=== PATIENT | male | born 1980 | race American Indian/Alaskan Native ===

== ENCOUNTER 2019-09-19 06:23 | Observation (INO) | payer OTHER ==
[2019-09-19] MEDS ORDERED: ASPIRIN 325 MG TAB PO ONE (06:57)
[2019-09-19 07:36] LABS: Basophils # (Auto) 0.1 K/mm3 (0.0-0.1); Basophils % (Auto) 0.8 % (0.0-1.8); Eosinophils # (Auto) 0.1 K/mm3 (0.0-0.4); Eosinophils % (Auto) 1.4 % (0.0-4.3); Hematocrit 40.1 % (35.5-45.6); Hemoglobin 13.3 gm/dl (11.8-15.2); Lymphocytes # (Auto) 1.8 K/mm3 (1.2-5.4); Lymphocytes % (Auto) 22.5 % (13.4-35.0); Mean Corpuscular HGB Conc 33 % (32-34); Mean Corpuscular Volume 85 fl (84-94); Monocytes # (Auto) 0.8 K/mm3 (0.0-0.8); Monocytes % (Auto) 9.6 % (0.0-7.3); Platelet Count 272 K/mm3 (140-440); Red Blood Count 4.73 M/mm3 (3.65-5.03); Red Cell Distribution Width 15.3 % (13.2-15.2)
[2019-09-19 07:52] LABS: BUN/Creatinine Ratio 17; Blood Urea Nitrogen 19 mg/dL (9-20); Calcium 9.4 mg/dL (8.4-10.2); Hemolysis Index 10
--- NOTE | 2019-09-19 08:30 | XRay Report ---
CHEST 2 VIEWS INDICATION / CLINICAL INFORMATION: Chest Pain. COMPARISON: None available. FINDINGS: SUPPORT DEVICES: None. HEART / MEDIASTINUM: No significant abnormality. LUNGS / PLEURA: No significant pulmonary or pleural abnormality. No pneumothorax. ADDITIONAL FINDINGS: No significant additional findings. IMPRESSION: 1. No acute findings. Signer Name: Christina Crouch MD Signed: 09/19/2019 8:26 AM Workstation Name: [id number]
--- NOTE | 2019-09-19 10:03 | Emergency Department Report ---
ED Chest Pain HPI - General Chief Complaint: Chest Pain Stated Complaint: CHEST PAIN Time Seen by Provider: 09/19/19 09:45 Source: patient, RN notes reviewed Mode of arrival: Ambulatory Limitations: No Limitations - History of Present Illness Initial Comments: Primary care Dr.: Dr. Portillo Past medical history: Obesity, hypertension, high cholesterol Patient states that earlier on this year, around May,, he saw one of our local cardiologists, likely Dr. Teodoro Corcoran He was evaluated for chest pain at that time. He reports having an ech ocardiogram which he indicates was normal, and he also indicates that he had a negative nuclear stress test. At that time, he was being evaluated for nonspecific left-sided chest pain. Today, the patient presents with a complaint of resolve left-sided chest pressure and discomfort. He woke up at 5:00 this morning, and noticed left-sided chest discomfort. The discomfort is described as aching, and did not radiate to the back, arms or neck. There is no vomiting or diaphoresis. There is no exertional shortness of breath. There is no recent aspirin consumption. He described lightheadedness, now resolved. He is right- hand dominant, and does a lot of heavy lifting for work. He has had some recent trips, but denies surgery, posterior leg pain or leg swelling, hematemesis and bright red blood per rectum. Symptoms are now resolved. MD Complaint: chest pain -: Gradual Onset: during rest Pain Location: left chest Pain Radiation: none Severity: mild Quality: aching Consistency: intermittent Improves With: nothing Worsens With: nothing Context: other Aspirin use within the Past 7 Days: (0) No - Related Data On Oral Contraceptives: No Allergies Allergy/AdvReac Type Severity Reaction Status Date / Time morphine Allergy Hives Verified 09/19/19 06:57 Penicillins Allergy Hives Verified 09/19/19 06:56 Sulfa (Sulfonamide Allergy Hives Verified 09/19/19 06:57 Antibiotics) Heart Score - HEART Score History: Slightly suspicious EKG: Non-specific Age: < 45 Risk factors: > 3 risk factors or hx of atherosclerotic disease Troponin: < normal limit HEART Score: 3 - Critical Actions Critical Actions: 4-6 pts:12-16.6% risk of adverse cardiac event. Should be admitted ED Review of Systems ROS: Stated complaint: CHEST PAIN Other details as noted in HPI Constitutional: denies: fever Eyes: denies: eye discharge ENT: denies: congestion Respiratory: denies: wheezing Cardiovascular: other Gastrointestinal: denies: vomiting Genitourinary: denies: dysuria Musculoskeletal: denies: back pain Neurological: weakness Psychiatric: anxiety Hematological/Lymphatic: denies: easy bleeding ED Past Medical Hx - Past Medical History Previous Medical History?: Yes Hx Hypertension: Yes Additional medical history: High Cholesterol - Surgical History Past Surgical History?: Yes Additional Surgical History: Back, Right foot - Social History Smoking Status: Never Smoker Substance Use Type: None ED Physical Exam - General Limitations: No Limitations General appearance: alert, anxious, obese - Head Head exam: Present: atraumatic, normocephalic - Eye Eye exam: Present: normal appearance, EOMI. Absent: nystagmus - ENT ENT exam: Present: normal exam, normal orophraynx, mucous membranes moist, normal external ear exam - Neck Neck exam: Present: normal inspection, full ROM. Absent: tenderness, meningismus - Respiratory Respiratory exam: Present: normal lung sounds bilaterally. Absent: respiratory distress - Cardiovascular Cardiovascular Exam: Present: regular rate, normal rhythm, normal heart sounds. Absent: bradycardia, tachycardia, irregular rhythm, systolic murmur, diastolic murmur, rubs, gallop - GI/Abdominal GI/Abdominal exam: Present: soft. Absent: distended, tenderness, guarding, rebound, rigid, pulsatile mass - Rectal Rectal exam: Present: deferred - Extremities Exam Extremities exam: Present: normal inspection, full ROM, other (2+ pulses noted in the bilateral upper and lower extremities. Muscular compartments are soft. The pelvis is stable. There is no long bony tenderness.). Absent: pedal edema, calf tenderness - Back Exam Back exam: Present: normal inspection - Neurological Exam Neurological exam: Present: alert, oriented X3, normal gait, other (there is no facial droop. The tongue is midline. Extraocular movements are intact bilaterally. There is 5/5 strength bilateral upper and lower extremities. Sensation is intact to light touch bilateral upper and lower extremities.). Absent: motor sensory deficit - Psychiatric Psychiatric exam: Present: anxious - Skin Skin exam: Present: warm, dry, intact, normal color. Absent: rash ED Course Vital Signs 09/19/19 09/19/19 09/19/19 06:41 10:59 12:07 Temperature 98.5 F Pulse Rate 98 H 74 89 Respiratory 18 16 20 Rate Blood Pressure 179/110 Blood Pressure 146/97 159/103 [Left] O2 Sat by Pulse 97 97 96 Oximetry 09/19/19 13:39 Temperature Pulse Rate 74 Respiratory 18 Rate Blood Pressure Blood Pressure 144/94 [Left] O2 Sat by Pulse 99 Oximetry - Reevaluation(s) Reevaluation #1: 09/19/19 11:31 Differential diagnosis, including but not limited to: Acute coronary syndrome, GERD, gastritis, hiatal hernia, pneumonia, pulmonary embolism Assessment and plan: 39-year-old gentleman with left-sided chest pain. He is not tachycardic, tachypnea or hypoxia, he is perc negative and d dimer negative EKG is unchanged 2, but abnormal. Troponin is negative 2. Contacted covering cardiology, Dr. Thomas. Apparently, the patient had a stress test a few months ago which was inconclusive and nondiagnostic. He indicates of the left axis deviation appears to be new. he is amenable to following in inpatient consultation if patient agrees to admission Given all the aforementioned, patient at moderate risk for major adverse cardiac event, especially given chest pain, EKG changes, and nondiagnostic risk stratification. We have recommended admission to the hospital for further evaluation and management. The consult and dermatological surgeon agrees to follow in consultation. Extensive discussion had with the patient. We talked about recommendations for admission, risks, benefits and alternatives. The patient is currently deciding whether or not he wants to be admitted. 09/19/19 12:04 Reevaluation #2: 09/19/19 12:04 d/w Dr Marivel Jain, patient accepted to the medical service for expedited cardiac risk stratification REGGIE score - Reggie Score Age > 65: (0) No Aspirin use within the Past 7 Days: (0) No 3 or more CAD Risk Factors: (1) Yes 2 or more Angina events in past 24 hrs: (0) No Known CAD with more than 50% Stenosis: (0) No Elevated Cardiac Markers: (0) No ST Deviation Greater than 0.5mm: (0) No REGGIE Score: 1 ED Medical Decision Making - Lab Data Result diagrams: 09/19/19 07:08 09/19/19 07:08 Vital Signs 09/19/19 09/19/19 06:41 10:59 Temperature 98.5 F Pulse Rate 98 H 74 Respiratory 18 16 Rate Blood Pressure 179/110 Blood Pressure 146/97 [Left] O2 Sat by Pulse 97 97 Oximetry Lab Results 09/19/19 09/19/19 09/19/19 Range/Units 07:08 07:08 09:53 WBC 8.2 (4.5-11.0) K/mm3 RBC 4.73 (3.65-5.03) M/mm3 Hgb 13.3 (11.8-15.2) gm/dl Hct 40.1 (35.5-45.6) % MCV 85 (84-94) fl MCH 28 (28-32) pg MCHC 33 (32-34) % RDW 15.3 H (13.2-15.2) % Plt Count 272 (140-440) K/mm3 Lymph % (Auto) 22.5 (13.4-35.0) % [place] % (Auto) 9.6 H (0.0-7.3) % Eos % (Auto) 1.4 (0.0-4.3) % Baso % (Auto) 0.8 (0.0-1.8) % Lymph # 1.8 (1.2-5.4) K/mm3 [place] # 0.8 (0.0-0.8) K/mm3 Eos # 0.1 (0.0-0.4) K/mm3 Baso # 0.1 (0.0-0.1) K/mm3 Seg Neutrophils % 65.7 (40.0-70.0) % Seg Neutrophils # 5.4 (1.8-7.7) K/mm3 PT (12.2-14.9) Sec. INR (0.87-1.13) D-Dimer (0-234) ng/mlDDU Sodium 142 (137-145) mmol/L Potassium 3.4 L (3.6-5.0) mmol/L Chloride 104.2 (98-107) mmol/L Carbon Dioxide 21 L (22-30) mmol/L Anion Gap 20 mmol/L BUN 19 (9-20) mg/dL Creatinine 1.1 (0.8-1.5) mg/dL Estimated GFR > 60 ml/min BUN/Creatinine Ratio 17 % Glucose 139 H (75-100) mg/dL Calcium 9.4 (8.4-10.2) mg/dL Troponin T < 0.010 < 0.010 (0.00-0.029) ng/mL 09/19/19 09/19/19 Range/Units 10:08 10:08 WBC (4.5-11.0) K/mm3 RBC (3.65-5.03) M/mm3 Hgb (11.8-15.2) gm/dl Hct (35.5-45.6) % MCV (84-94) fl MCH (28-32) pg MCHC (32-34) % RDW (13.2-15.2) % Plt Count (140-440) K/mm3 Lymph % (Auto) (13.4-35.0) % [place] % (Auto) (0.0-7.3) % Eos % (Auto) (0.0-4.3) % Baso % (Auto) (0.0-1.8) % Lymph # (1.2-5.4) K/mm3 [place] # (0.0-0.8) K/mm3 Eos # (0.0-0.4) K/mm3 Baso # (0.0-0.1) K/mm3 Seg Neutrophils % (40.0-70.0) % Seg Neutrophils # (1.8-7.7) K/mm3 PT 12.1 L (12.2-14.9) Sec. INR 0.90 (0.87-1.13) D-Dimer 149.6 (0-234) ng/mlDDU Sodium (137-145) mmol/L Potassium (3.6-5.0) mmol/L Chloride (98-107) mmol/L Carbon Dioxide (22-30) mmol/L Anion Gap mmol/L BUN (9-20) mg/dL Creatinine (0.8-1.5) mg/dL Estimated GFR ml/min BUN/Creatinine Ratio % Glucose (75-100) mg/dL Calcium (8.4-10.2) mg/dL Troponin T (0.00-0.029) ng/mL - EKG Data -: EKG Interpreted by Ut EKG shows normal: sinus rhythm Rate: normal - EKG Data When compared to previous EKG there are: previous EKG unavailable 09/19/19 11:30 EKG #1 shows a sinus rhythm, 93 bpm, left axis deviation, left anterior fascicular block, QTC is prolonged EKG #2 was unchanged from prior. EKGs are unremarkable. As per discussion with consulting cardiology, Dr. Thomas, left axis deviation is new, left anterior fascicular block is new, patient's previous EKG showed a normal sinus rhythm with premature ventricular contractions. - Radiology Data Radiology results: report reviewed, image reviewed X-ray of the chest is interpreted as negative for acute disease Critical care attestation.: If time is entered above; I have spent that time in minutes in the direct care of this critically ill patient, excluding procedure time. ED Disposition Clinical Impression: Acute chest pain, Acute electrocardiogram changes Disposition: 09 OP ADMIT IP TO THIS HOSP Is pt being admited?: Yes Does the pt Need Aspirin: Yes Condition: Stable
[2019-09-19] MEDS ORDERED: ACETAMINOPHEN 325 MG TAB PO ONE (10:24)
[2019-09-19] MEDS ORDERED: FAMOTIDINE 20 MG TAB PO ONE (10:24)
[2019-09-19 10:34] LABS: INR 0.9 (0.87-1.13)
[2019-09-19] MEDS ORDERED: POTASSIUM CHLORIDE ER 20 MEQ TAB PO ONE (10:39)
[2019-09-19] MEDS ORDERED: ASPIRIN 325 MG TAB ONE (11:09)
[2019-09-19] MEDS ORDERED: ASPIRIN 81 MG TAB CHEW PO ONE (11:33)
[2019-09-19] MEDS ORDERED: ALBUTEROL 2.5 MG/3 ML NEBU IH PRN (12:03)
[2019-09-19] MEDS ORDERED: ACETAMINOPHEN 325 MG TAB PO PRN (12:03)
[2019-09-19] MEDS ORDERED: ONDANSETRON 4 MG/2 ML INJ IV PRN (12:03)
[2019-09-19] MEDS ORDERED: MORPHINE 2 MG/1 ML INJ IV PRN (12:03)
--- NOTE | 2019-09-19 12:06 | History and Physical Report ---
History of Present Illness Chief complaint: My chest was hurting History of present illness: 39 YO Male with Obesity Hypoventilation Syndrome, HTN, HLD presents to ED for evaluation. Pt states that he has experienced pain in his chest over the past 1 day. Pt reports that he was awakened from sleep around 0500 hrs with pain in his left chest. Pain is 5/10, intermittent, nonradiating, not worsened with exertion, not relieved with rest. Pain lasted for over an hour and has since resolved. Pt transported to [facility] via private vehicle. Pt seen and evaluated in ED and found to have Angina. Pt placed in observation status and admitted to telemetry. Cardiology team consulted in ED. Pt denies fever, chills, Palpitations, NVD, Trauma, unilateral leg swelling, calf pain, prolonged travel, individual/family history of DVT/Bleeding/PE/Blood clotting Disorders. No prior admission for review. All medication listed at time of admission was reconciled. Past History Past Medical History: other (see HPI) Past Surgical History: Other (Back, Right Foot surgery) Social history: single. denies: smoking, alcohol abuse, prescription drug abuse Family history: no significant family history, other (reviewed) Medications and Allergies Allergies Allergy/AdvReac Type Severity Reaction Status Date / Time morphine Allergy Hives Verified 09/19/19 06:57 Penicillins Allergy Hives Verified 09/19/19 06:56 Sulfa (Sulfonamide Allergy Hives Verified 09/19/19 06:57 Antibiotics) Home Medications Medication Instructions Recorded Confirmed Last Taken Type Allopurinol [Zyloprim] 300 mg PO QDAY 09/19/19 09/19/19 1 Day Ago History ~09/18/19 AtorvaSTATin [Lipitor] 20 mg PO QHS 09/19/19 09/19/19 1 Day Ago History ~09/18/19 Indomethacin 50 mg PO QDAY PRN 09/19/19 09/19/19 1 Day Ago History ~09/18/19 Metoprolol Xl [Metoprolol 200 mg PO QDAY 09/19/19 09/19/19 1 Day Ago History SUCCINATE ER TAB] ~09/18/19 amLODIPine 10 mg PO QDAY 09/19/19 09/19/19 1 Day Ago History ~09/18/19 Active Meds: Active Medications Acetaminophen (Tylenol) 650 mg PO Q4H PRN PRN Reason: Pain MILD(1-3)/Fever >100.5/GUNN Albuterol (Proventil) 2.5 mg IH Q4HRT PRN PRN Reason: Shortness Of Breath Famotidine (Pepcid) 20 mg PO BID ALMAZ Morphine Sulfate (Morphine) 2 mg IV Q4H PRN PRN Reason: Pain, Moderate (4-6) Ondansetron HCl (Zofran) 4 mg IV Q8H PRN PRN Reason: Nausea And Vomiting Sodium Chloride (Sodium Chloride Flush Syringe 10 Ml) 10 ml IV BID ALMAZ Sodium Chloride (Sodium Chloride Flush Syringe 10 Ml) 10 ml IV PRN PRN PRN Reason: LINE FLUSH Review of Systems Constitutional: no weight loss, no weight gain, no fever, no chills Ears, nose, mouth and throat: no ear pain, no tinnitis, no nasal congestion, no nasal discharge Cardiovascular: chest pain, no rapid/irregular heart beat, no edema, no syncope, no lightheadedness Respiratory: no cough, no cough with sputum, no excessive sputum, no hemoptysis Gastrointestinal: no abdominal pain, no nausea, no vomiting, no diarrhea, no change in bowel habits, no hematemesis Genitourinary Male: no dysuria, no flank pain, no discharge, no nocturia Rectal: no pain Musculoskeletal: no neck stiffness, no neck pain, no shooting arm pain, no arm numbness/tingling Integumentary: no rash, no redness, no wounds, no jaundice Neurological: no head injury, no transient paralysis, no paralysis, no parathesias, no numbness, no tingling, no syncope Psychiatric: no anxiety, no change in sleep habits, no insomnia, no hypersomnia, no change in appetite, no change in libido Endocrine: no cold intolerance, no polyphagia, no polydipsia, no polyuria, no excessive sweating Hematologic/Lymphatic: no easy bruising, no easy bleeding, no lymphadenopathy, no lymphedema Allergic/Immunologic: no urticaria, no allergic rhinitis, no anaphylaxis, no angioedema Exam - Constitutional Vitals: Temp Pulse Resp BP Pulse Ox 98.5 F 74 16 146/97 97 09/19/19 06:41 09/19/19 10:59 09/19/19 10:59 09/19/19 10:59 09/19/19 10:59 General appearance: Present: mild distress - EENT Eyes: Present: PERRL ENT: hearing intact, clear oral mucosa - Neck Neck: Present: supple, normal ROM - Respiratory Respiratory effort: normal Respiratory: bilateral: CTA - Cardiovascular Heart Sounds: Present: S1 & S2. Absent: rub, click - Extremities Extremities: pulses symmetrical, No edema Peripheral Pulses: within normal limits - Abdominal General gastrointestinal: Present: soft, non-tender, non-distended, normal bowel sounds Male genitourinary: Present: normal - Integumentary Integumentary: Present: clear, warm, dry - Musculoskeletal Musculoskeletal: gait normal, strength equal bilaterally - Psychiatric Psychiatric: appropriate mood/affect, intact judgment & insight - Neurologic Neurologic: CNII-XII intact, moves all extremities Results - Labs CBC & Chem 7: 09/19/19 07:08 09/19/19 07:08 Labs: Abnormal lab results 09/19/19 09/19/19 09/19/19 Range/Units 07:08 07:08 10:08 RDW 15.3 H (13.2-15.2) % [place] % (Auto) 9.6 H (0.0-7.3) % PT 12.1 L (12.2-14.9) Sec. Potassium 3.4 L (3.6-5.0) mmol/L Carbon Dioxide 21 L (22-30) mmol/L Glucose 139 H (75-100) mg/dL Assessment and Plan - Patient Problems (1) Angina at rest Current Visit: Yes Status: Acute Plan to address problem: Admit to telemetry, Cardiology consulted in ED, serial cardiac enzymes, ekg, morphine, supplemental oxygen, nitro, aspirin, Stress test in AM (2) Obesity hypoventilation syndrome Current Visit: Yes Status: Acute Plan to address problem: Balanced diet, increased physical activity at discharge, NIPPV as clinically indicated, pulse oximetry, (3) HTN (hypertension) Current Visit: Yes Status: Acute Qualifiers: Hypertension type: essential hypertension Qualified Code(s): I10 - Essential (primary) hypertension Plan to address problem: Monitor BP q shift, supportive care, monitor BP q shift, (4) HLD (hyperlipidemia) Current Visit: Yes Status: Acute Qualifiers: Hyperlipidemia type: mixed hyperlipidemia Qualified Code(s): E78.2 - Mixed hyperlipidemia Plan to address problem: Statin therapy, lipid panel, balanced diet, (5) DVT prophylaxis Current Visit: Yes Status: Acute Plan to address problem: SCD to BLE while in bed,
--- NOTE | 2019-09-19 12:57 | Event Note ---
full consult dictated thanks
[2019-09-19] MEDS: FAMOTIDINE 20 MG TAB PO SCH (21:35)
[2019-09-19] MEDS: METOPROLOL SUCCINATE XL 100 MG TAB PO SCH (22:19)
[2019-09-19] MEDS: amLODIPine 10 MG TAB PO SCH (22:20)
--- NOTE | 2019-09-19 22:24 | Consultation ---
REFERRING PHYSICIAN: Dr. Newsome REASON FOR CONSULTATION: Advice and opinion regarding chest pain. PRIMARY [place] TECHNICIAN: Dr. Corcoran. HISTORY OF PRESENT ILLNESS: The patient is a pleasant 39-year-old gentleman who presents to the emergency room with high blood pressure and sharp chest pain on and off, resolved at this point. The patient was seen in the emergency room. Denies any chest pain or shortness of breath at this point. No headache, nausea or vomiting. Feels " It should be noted that the patient was last seen in the office on 07/15/[address] Corcoran. Had a nondiagnostic treadmill stress test due to failure to achieve target heart rate on 07/08. Had an echocardiogram which revealed normal LV function. No significant valvulopathy. No pericardial effusion. He has been apparently compliant with medications. PRIMARY CARE PHYSICIAN: Dr. Brook Portillo. PAST MEDICAL HISTORY: Obesity, hypertension, hyperlipidemia. Past medical history as aforementioned. He is a nonsmoker. No syncope or presyncope. ALLERGIES: He is allergic to MORPHINE, PENICILLIN, SULFA. REVIEW OF SYSTEMS: As per HPI. FAMILY HISTORY: Noncontributory. SOCIAL HISTORY: Nonsmoker, nondrinker. PHYSICAL EXAMINATION: VITAL SIGNS: Blood pressure is mildly elevated at 150/90. He is afebrile. Tele reveals sinus rhythm, no dysrhythmias. O2 sat is 98% on room air. HEENT: Sclerae are anicteric. PERRLA. NECK: Supple. No mass or JVD. CHEST: Clear to auscultation bilaterally. Good air movement. CARDIOVASCULAR: Regular rate and rhythm, S1, S2. ABDOMEN: Nondistended, nontender. EXTREMITIES: No cyanosis, clubbing, edema. Good peripheral pulses. SKIN: Intact. No rashes. NEUROLOGIC: Grossly normal. LABORATORY DATA: EKG reveals normal sinus rhythm, normal axis, LVH. His troponins are negative x 2. D-dimer is normal. Coags are normal. ASSESSMENT AND PLAN: At this point, given his recurrent chest pain, nondiagnostic stress test in the office and multiple risk factors, we will proceed with observation and nuclear stress test. Aggressive primary and secondary prevention measures discussed. Further plans contingent on these results. Thank you, Dr. Newsome, for this consultation. JOB# [id number] SBM/NTS
[2019-09-20] MEDS ORDERED: REGADENOSON 0.4 MG/5 ML INJ IV ONE ×3 (07:00→08:33)
[2019-09-20 08:45] LABS: BUN/Creatinine Ratio 12; Blood Urea Nitrogen 13 mg/dL (9-20); Calcium 9.5 mg/dL (8.4-10.2); Hemolysis Index 5
[2019-09-20] MEDS ORDERED: ASPIRIN 325 MG TAB PO SCH (10:00)
[2019-09-20] MEDS: amLODIPine 10 MG TAB PO SCH (11:30)
[2019-09-20] MEDS: METOPROLOL SUCCINATE XL 100 MG TAB PO SCH (11:30)
[2019-09-20] MEDS: FAMOTIDINE 20 MG TAB PO SCH (11:31)
[2019-09-20 12:05] VITALS: BP 163/102
--- NOTE | 2019-09-20 13:33 | Treadmill Report ---
NUCLEAR PERFUSION SCAN REFERRING PHYSICIAN: Hospitalist service. PROTOCOL: The patient was brought to the stress lab in a postoperative state, given 10 mCi of technetium 99m at rest. The patient underwent rest imaging. The patient underwent Lexiscan stress test. At peak stress, the patient was given 26 mCi of technetium 99m. Shortly thereafter, the patient underwent stress imaging. Raw imaging reveals mild GI artifact, no significant motion artifact. SPECT imaging examined carefully in horizontal long axis, vertical long axis, short axis views. There is normal mitral uptake of radioisotope in all reported segments. No evidence of a significant fixed or reversible perfusion defects suggestive of prior infarction or ischemia. Gated wall motion reveals normal systolic thickening, calculated ejection fraction of 51%, no TID. CONCLUSIONS: 1. Normal myocardial perfusion scan without evidence of active ischemia or prior infarction. 2. Normal left ventricular systolic performance without evidence of transient ischemic dilatation or stress-induced segmental wall motion abnormalities. JOB# [id number] SBManolo/FE
--- NOTE | 2019-09-20 14:37 | Progress Note ---
Assessment and Plan S/p lexiscan MPI stress test this morning which was negative. Currently stable cardiac status. Pt reports resolution of chest pain. Pt may discharge home from cardiology standpoint. Recommend follow up in our office with Dr. Corcoran within 1-2 weeks ([phone]). The patient has been seen in conjunction with Dr. Priya Thomas who agrees with the assessment and plan of care. - Patient Problems (1) Chest pain Current Visit: Yes Status: Resolved (2) Accelerated hypertension Current Visit: Yes Status: Acute (3) HLD (hyperlipidemia) Current Visit: Yes Status: Chronic Qualifiers: Hyperlipidemia type: mixed hyperlipidemia Qualified Code(s): E78.2 - Mixed hyperlipidemia (4) Obesity Current Visit: Yes Status: Chronic Subjective Date of service: 09/20/19 Principal diagnosis: cp Interval history: pt for stress test, no current complaints. in SR overnight with no acute events on tele. Objective Last Vital Signs Temp 98.0 F 09/20/19 03:41 Pulse 68 09/20/19 11:30 Resp 18 09/20/19 03:41 BP 163/102 09/20/19 11:31 Pulse Ox 98 09/20/19 07:47 - Physical Examination General: No Apparent Distress HEENT: Positive: PERRL, Normocephaly, Mucus Membranes Moist Neck: Positive: neck supple, trachea midline Cardiac: Positive: Reg Rate and Rhythm, S1/S2 Lungs: Positive: clear to auscultation Neuro: Positive: Grossly Intact Abdomen: Negative: Tender Skin: Negative: Rash Musculoskeletal: No Pain Extremities: Absent: edema - Labs and Meds Comprehensive Metabolic Panel 09/20/19 Range/Units 07:30 Sodium 144 (137-145) mmol/L Potassium 3.9 (3.6-5.0) mmol/L Chloride 103.9 (98-107) mmol/L Carbon Dioxide 22 (22-30) mmol/L BUN 13 (9-20) mg/dL Creatinine 1.1 (0.8-1.5) mg/dL Glucose 110 H (75-100) mg/dL Calcium 9.5 (8.4-10.2) mg/dL - Imaging and Cardiology EKG: report reviewed, image reviewed - Telemetry EKG Rhythm: Sinus Rhythm
--- NOTE | 2019-09-20 14:57 | Discharge Summary ---
Providers - Providers Date of Admission: 09/19/19 12:03 Date of discharge: 09/20/19 Attending physician: AUNG PORTILLO 09/19/19 12:03 Consult to Physician [CONS] Urgent Comment: Consulting Provider: MARCIO BOSS Physician Instructions: Reason For Exam: cp abnormal ekg Primary care physician: [employer] Hospitalization Reason for admission: cp Condition: Stable Hospital course: 39 YO Male with Obesity Hypoventilation Syndrome, HTN, HLD presents to ED for evaluation. Pt stated that he had experienced pain in his chest over the past 1 day [employer]. Pt reported that he was awakened from sleep around 0500 hrs with pain in his left chest. Pain was 5/10, intermittent, nonradiating, not worsened with exertion, not relieved with rest. Pain lasted for over an hour and has since resolved. Pt transported to [facility] via private vehicle. Pt seen and evaluated in ED and found to have Angina. Pt placed in observation status and admitted to telemetry. Cardiology team consulted in ED. Pt has had no further pain. Cardiology eval the pt and rec stress which was negative. Pt may discharge home from cardiology standpoint. Recommend follow up in our office with Dr. Corcoran within 1-2 weeks ([phone]). D/C time 32 min Disposition: DC-01 TO HOME OR SELFCARE Time spent for discharge: 32 Core Measure Documentation - Palliative Care Palliative Care/ Comfort Measures: Not Applicable - Core Measures Any of the following diagnoses?: none Exam - Constitutional Vitals: Temp Pulse Resp BP Pulse Ox 98.0 F 68 18 163/102 98 09/20/19 03:41 09/20/19 11:30 09/20/19 03:41 09/20/19 11:31 09/20/19 07:47 General appearance: Present: no acute distress, well-nourished - EENT Eyes: Present: PERRL ENT: hearing intact, clear oral mucosa - Neck Neck: Present: supple, normal ROM - Respiratory Respiratory effort: normal Respiratory: bilateral: CTA - Cardiovascular Heart Sounds: Present: S1 & S2. Absent: rub, click - Extremities Extremities: pulses symmetrical, No edema Peripheral Pulses: within normal limits - Abdominal General gastrointestinal: Present: soft, non-tender, non-distended, normal bowel sounds Male genitourinary: Present: normal - Integumentary Integumentary: Present: clear, warm, dry - Musculoskeletal Musculoskeletal: gait normal, strength equal bilaterally - Psychiatric Psychiatric: appropriate mood/affect, intact judgment & insight - Neurologic Neurologic: CNII-XII intact, moves all extremities Plan Activity: no restrictions Weight Bearing Status: Full Weight Bearing Diet: regular Follow up with: PRIMARY CARE, [Primary Care Provider] - 3-5 Days MONO CORCORAN MD [Staff Physician] - 7 Days
== END 2019-09-20 16:25 | disposition home or self-care (01) ==
LOC: ED 06:23 → 4A 12:03
PROVIDERS: ADMIT Internal Medicine; ATTEND Hospitalist
DX: I20.8 Other forms of angina pectoris (principal); I10 Essential (primary) hypertension; R94.31 Abnormal electrocardiogram [ECG] [EKG]; E78.5 Hyperlipidemia, unspecified; E66.2 Morbid (severe) obesity with alveolar hypoventilation; Z68.41 Body mass index [BMI] 40.0-44.9, adult; Z98.890 Other specified postprocedural states
CPT/HCPCS: 36415; 71046; 78452; 80048; 83880; 84484; 85025; 85379; 85610; 93005; 93010; 93017; 99284; A9270; A9502; G0378; J2785